=== PATIENT | male | born 1965 | race Caucasian/White ===

== ENCOUNTER 2019-12-24 13:48 | Outpatient (CLI) | payer BC, OTHER ==
--- NOTE | 2019-12-24 14:18 | RAD ---
EXAM: Two views chest PROVIDED CLINICAL HISTORY: Shortness of breath COMPARISON: 02/22/2016 FINDINGS: Cardiac and mediastinal silhouette appears within normal limits. Lungs appear free of significant opa city. No pleural fluid or pneumothorax apparent. IMPRESSION: No evidence for an acute cardiopulmonary process.
== END 2019-12-24 13:49 | disposition home or self-care (01) ==
LOC: MADRAD 13:48
PROVIDERS: ATTEND Family Medicine
DX: R06.02 Shortness of breath (principal); Z20.828 Contact with and (suspected) exposure to other viral communicable diseases
CPT/HCPCS: 71046

== ENCOUNTER 2020-08-08 10:21 | Emergency (ER) | payer OTHER ==
[2020-08-08] MEDS ORDERED: Acetaminophen 500 MG TAB ONE (11:18)
== END 2020-08-08 11:26 | disposition home or self-care (01) ==
LOC: MADERS 10:21
DX: U07.1 COVID-19 (principal); E11.9 Type 2 diabetes mellitus without complications; Z79.899 Other long term (current) drug therapy
CPT/HCPCS: 99283